=== PATIENT | male | born 1945 | race Caucasian/White ===

== ENCOUNTER 2023-11-25 15:17 | Outpatient (CLI) | payer MEDICARE, OTHER | END 2023-11-25 15:18 | disposition home or self-care (01) | LOC: SCSRAD 15:17 | PROVIDERS: ATTEND Family Medicine | DX: M54.50 Low back pain, unspecified (principal); Z98.890 Other specified postprocedural states | CPT/HCPCS: 72100 ==

== ENCOUNTER 2025-06-16 14:50 | Outpatient (CLI) | payer MEDICARE ==
[~2025-06-16 14:50] MED LIST: Iopamidol 370 76% 100 ML VIAL ONE
[2025-06-16 15:24] LABS: Estimated GFR - POC 56.0
== END 2025-06-16 14:51 | disposition home or self-care (01) ==
LOC: CT 14:50
PROVIDERS: ATTEND Family Medicine
DX: R31.9 Hematuria, unspecified (principal); K44.9 Diaphragmatic hernia without obstruction or gangrene; S22.081A Stable burst fracture of T11-T12 vertebra, initial encounter for closed fracture; G95.89 Other specified diseases of spinal cord; M89.9 Disorder of bone, unspecified; N40.0 Benign prostatic hyperplasia without lower urinary tract symptoms; K76.89 Other specified diseases of liver; R93.89 Abnormal findings on diagnostic imaging of other specified body structures; I70.90 Unspecified atherosclerosis; J84.10 Pulmonary fibrosis, unspecified; J98.11 Atelectasis
CPT/HCPCS: 36415; 74178; 82565; Q9967